=== PATIENT | female | born 1995 | race Caucasian/White ===

== ENCOUNTER 2018-04-18 19:55 | Emergency (ER) | payer SELFPAY ==
--- NOTE | 2018-04-18 22:00 | ER Document Report ---
ED Medical Screen (RME) - General Chief Complaint: Flank Pain Stated Complaint: FLANK PAIN Time Seen by Provider: 04/18/18 21:59 Mode of Arrival: Ambulatory Information source: Patient Notes: Patient is a 22-year-old female who presents with multiple complaints today. Patient reports that starting last night she had started having body pains all over, low back pain, chills, nausea and vomiting weakness and increased urination. Exam: Tenderness to palpation to right lower quadrant and right flank. I have greeted and performed a rapid initial assessment of this patient. A comprehensive ED assessment and evaluation of the patient, analysis of test results and completion of the medical decision making process will be conducted by additional ED providers. Dictation of this chart was performed using voice recognition software; therefore, there may be some unintended grammatical errors. TRAVEL OUTSIDE OF THE [place] IN LAST 30 DAYS: No - Related Data Allergies/Adverse Reactions: No Known Allergies Allergy (Unverified 04/18/18 19:58) Physical Exam - Vital signs Vitals: Temp Pulse Resp BP Pulse Ox 98.3 F 95 16 126/77 H 100 04/18/18 20:02 04/18/18 20:02 04/18/18 20:02 04/18/18 20:02 04/18/18 20:02 Course - Vital Signs Vital signs: Temp Pulse Resp BP Pulse Ox 98.3 F 95 16 126/77 H 100 04/18/18 20:02 04/18/18 20:02 04/18/18 20:02 04/18/18 20:02 04/18/18 20:02
[2018-04-18 22:21] LABS: ABSOLUTE BASOPHILS # (AUTO) 0.1 10^3/uL (0.0-0.2); ABSOLUTE MONOCYTES (AUTO) 0.9 10^3/uL (0.1-1.4); ABSOLUTE NEUT (AUTO) 11.8 10^3/uL (1.7-8.2); BASOPHILS % (AUTO) 0.6 % (0-2); HEMATOCRIT 37.2 % (36.0-47.0); HEMOGLOBIN 11.6 g/dL (12.0-15.5); LYMPHOCYTES % (AUTO) 7.5 % (13-45); MEAN CORPUSCULAR HEMOGLOBIN 20.9 pg (27.0-33.4); MEAN CORPUSCULAR HGB CONC 31.2 g/dL (32.0-36.0); MEAN CORPUSCULAR VOLUME 67 fl (80-97); MONOCYTES % (AUTO) 6.7 % (3-13); PLATELET COUNT 488 10^3/uL (150-450); RED BLOOD COUNT 5.55 10^6/uL (3.72-5.28); RED CELL DISTRIBUTION WIDTH 17.8 % (11.5-14.0); SEGMENTED NEUTROPHILS % (AUTO) 85.2 % (42-78); TOTAL CELLS COUNTED % (AUTO) 100 %; WHITE BLOOD COUNT 13.9 10^3/uL (4.0-10.5)
[2018-04-18 22:30] LABS: APPEARANCE,URINE SLIGHTLY-CLOUDY; BILIRUBIN,URINE NEGATIVE (NEGATIVE); COLOR,URINE YELLOW; GLUCOSE, URINE NEGATIVE (NEGATIVE); KETONES,URINE NEGATIVE (NEGATIVE); LEUKOCYTE ESTERASE,URINE NEGATIVE (NEGATIVE); NITRITE,URINE NEGATIVE (NEGATIVE); PROTEIN,URINE 30 mg/dL (NEGATIVE); URINE SPECIFIC GRAVITY 1.013; UROBILINOGEN,URINE NEGATIVE mg/dL (<2.0)
[2018-04-18 22:49] LABS: ALANINE AMINOTRANSFERASE 24 U/L (9-52); ALBUMIN 4.4 g/dL (3.5-5.0); ALKALINE PHOSPHATASE 76 U/L (38-126); ANION GAP 12 (5-19); ASPARTATE AMINO TRANSFERASE 24 U/L (14-36); BILIRUBIN,DIRECT 0.4 mg/dL (0.0-0.4); BILIRUBIN,TOTAL 0.6 mg/dL (0.2-1.3); BLOOD UREA NITROGEN 8 mg/dL (7-20); CALCIUM 9.7 mg/dL (8.4-10.2); CARBON DIOXIDE 22 mmol/L (22-30); CHLORIDE 103 mmol/L (98-107); GLUCOSE 113 mg/dL (75-110); LIPASE 68.6 U/L (23-300); POTASSIUM 4.4 mmol/L (3.6-5.0); SODIUM 136.5 mmol/L (137-145); TOTAL PROTEIN 7.9 g/dL (6.3-8.2)
--- NOTE | 2018-04-19 02:15 | ER Document Report ---
ED GI/ - General Chief Complaint: Flank Pain Stated Complaint: FLANK PAIN Time Seen by Provider: 04/18/18 21:59 Mode of Arrival: Ambulatory Notes: Pt. is a 22 year old female presenting to the ED c/o RLQ, right flank pain. Stated that this morning she developed episodic pain in her right back moving into her RLQ. Stated that she also has urinary frequency. Vomit x2 today NBNB. Denies fever, diarrhea, dysuria, chest pains, shortness of breath. No personal or family history of kidney stones. 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 TRAVEL OUTSIDE OF THE [place] IN LAST 30 DAYS: No - Related Data Allergies/Adverse Reactions: No Known Allergies Allergy (Unverified 04/18/18 19:58) Past Medical History - General Information source: Patient - Social History Smoking Status: Never Smoker Lives with: Family Family History: Reviewed & Not Pertinent Patient has suicidal ideation: No Patient has homicidal ideation: No Renal/ Medical History: Denies: Hx Peritoneal Dialysis Review of Systems - Review of Systems Constitutional: See HPI EENT: No symptoms reported Cardiovascular: See HPI Respiratory: See HPI Gastrointestinal: See HPI Genitourinary: See HPI Female Genitourinary: See HPI Musculoskeletal: See HPI Skin: No symptoms reported Hematologic/Lymphatic: No symptoms reported Neurological/Psychological: No symptoms reported Physical Exam - Vital signs Vitals: Temp Pulse Resp BP Pulse Ox 98.3 F 95 16 126/77 H 100 04/18/18 20:02 04/18/18 20:02 04/18/18 20:02 04/18/18 20:02 04/18/18 20:02 - Notes Notes: GENERAL: Alert, interacts well. Stated pain is better when she lays on her right side. HEAD: Normocephalic, atraumatic. EYES: Pupils equal, round, and reactive to light. Extraocular movements intact. ENT: Oral mucosa moist, tongue midline. NECK: Full range of motion. Supple. Trachea midline. LUNGS: Clear to auscultation bilaterally, no wheezes, rales, or rhonchi. No respiratory distress. HEART: Regular rate and rhythm. No murmur ABDOMEN: Soft, no current RLQ or pelvic pain. Non-distended. Bowel sounds present in all 4 quadrants. No McBurney's point tenderness. EXTREMITIES: Moves all 4 extremities spontaneously. No edema, normal radial and dorsalis pedis pulses bilaterally. No cyanosis. BACK: no cervical, thoracic, lumbar midline tenderness. No saddle anesthesia, normal distal neurovascular exam. Mild right CVA tenderness. NEUROLOGICAL: Alert and oriented x3. Normal speech. . PSYCH: Normal affect, normal mood. SKIN: Warm, dry, normal turgor. Well healed scars right flank area (Pt. stated from lung surgery when she was a ) Course - Re-evaluation Re-evalutation: Discussed with pt. diagnostic options. She stated she has had multiple CT scans due to her being premature and having surgery on her lung. Stated she would like to not have a CT if possible. Stated we could start with an US to see if there is fluid around her kidney which would tell us there may be an obstructing kidney stone. Then told the pt. this would not be the definitive testing but may give us more information. US shows no hydronephrosis. Patient states pain is currently resolved. But also states it is episodic in nature. In-depth discussion with patient about options for CT scan. Patient continues to decline. Due to no McBurney's point tenderness and no pelvic tenderness both pathology's unlikely. With positive RBCs on urine likely kidney stone passing. Discussed with patient need for follow-up with primary care in 24-48 hours for abdominal exam recheck. Told to return to the emergency department should she develop a fever, dysuria, increased abdominal pain, continuous vomiting or any other concerning symptoms. Discussed with patient that passing a kidney stone likely. - Vital Signs Vital signs: Temp Pulse Resp BP Pulse Ox 98.2 F 97 18 117/58 L 98 04/19/18 05:05 04/19/18 05:05 04/19/18 05:05 04/19/18 05:05 04/19/18 05:05 - Laboratory Result Diagrams: 04/18/18 22:05 04/18/18 22:05 Laboratory results interpreted by me: 04/18/18 04/18/18 04/18/18 22:05 22:05 22:05 WBC 13.9 H RBC 5.55 H Hgb 11.6 L MCV 67 L MCH 20.9 L MCHC 31.2 L RDW 17.8 H Plt Count 488 H Seg Neutrophils % 85.2 H Lymphocytes % 7.5 L Absolute Neutrophils 11.8 H Sodium 136.5 L Glucose 113 H Urine Protein 30 H Urine Blood LARGE H Discharge - Discharge Clinical Impression: Flank pain Hematuria Qualifiers: Hematuria type: unspecified type Qualified Code(s): R31.9 - Hematuria, unspecified Condition: Stable Disposition: HOME, SELF-CARE Instructions: Abdominal Pain ([facility]), Antinausea Medication ([facility]), Toradol Injection ([facility]) Additional Instructions: As we discussed you are most likely passing a kidney stone. You may have episodic pain and discomfort for the next couple of days. Your current tests show no sign of infection or blockage. You should follow-up with primary care in 24-48 hours for another provider to do an abdominal exam. Return to the emergency room should you develop fever, increased abdominal pain, uncontrolled vomiting, or any other concerning symptoms. Prescriptions: Ketorolac Tromethamine [Toradol 10 mg Tablet] 10 mg PO Q8HP PRN #24 tablet PRN Reason: Ondansetron [Zofran Odt 4 mg Tablet] 1 - 2 tab PO Q4H PRN #15 tab.rapdis PRN Reason: For Nausea/Vomiting
[2018-04-19] MEDS ORDERED: KETOROLAC TROMETHAMINE INJ/PF 30 MG/1 ML SDV IV ONE (02:29)
[2018-04-19] MEDS ORDERED: ONDANSETRON HCL INJ/PF 4 MG/2 ML SDV IV ONE (02:30)
--- NOTE | 2018-04-19 03:21 | RADIOLOGY REPORT (SQ) ---
CLINICAL DATA: 22-year-old female, right flank pain, assess for hydronephrosis TECHNICAL DATA: Grayscale and Doppler ultrasound imaging of the kidneys and bladder was performed. Comparison: None. FINDINGS: The right kidney measures 10.7 cm. in length The renal cortex is grossly normal. There is no evidence of renal mass, calculi or perinephric fluid collection. There is no pelvocaliectasis. There is normal blood flow. The left kidney measures 10.4 cm. in length. The renal cortex is grossly normal. There is no evidence of renal mass, calculi or perinephric fluid collection. There is no pelvocaliectasis. There is normal blood flow. The bladder is incompletely distended on this examination. IMPRESSION: 1. No sonographic evidence to suggest hydronephrosis of either kidney. 2. Incomplete distention of the urinary bladder on this examination.
[2018-04-19 05:06] VITALS: BP 117/58
== END 2018-04-19 05:06 | disposition home or self-care (01) ==
LOC: ER 19:55
DX: R10.9 Unspecified abdominal pain (principal); R31.9 Hematuria, unspecified; R10.31 Right lower quadrant pain; R35.0 Frequency of micturition; R11.10 Vomiting, unspecified; M54.9 Dorsalgia, unspecified; Z79.3 Long term (current) use of hormonal contraceptives
CPT/HCPCS: 99284; 96374; 96375; 36415; 83690; 84703; 85025; 80053; 81001; 76770; J1885; J2405